=== PATIENT | female | born 1950 | race Caucasian/White ===

== ENCOUNTER 2017-03-02 12:45 | Inpatient (IN) | payer OTHER, MEDICAID ==
[~2017-03-02] VITALS: Ht 157.5 cm; Wt 77.6 kg
[~2017-03-02 12:45] MED LIST: HYDR25TA; TRAM50TA3
[2017-03-02] MEDS ORDERED: SODIUM CHLORIDE 0.9% 2,000 ML IV ONE (12:52)
[2017-03-02] MEDS ORDERED: ALBUTEROL (0.083%) 2.5MG/3ML NEB ONE (12:55)
[2017-03-02] MEDS ORDERED: FAMOTIDINE 20MG/2ML VIAL IV ONE ×2 (12:59→13:30)
[2017-03-02] MEDS ORDERED: PIPERACILLIN/TAZ 3.375G PREMIX 50 ML IV ONE (13:00)
[2017-03-02] MEDS ORDERED: METHYLPREDNISOLONE SOD SUCC 125 MG/2 ML VIAL ONE (13:00)
[2017-03-02] MEDS ORDERED: DIPHENHYDRAMINE 50MG/ML VIAL ONE (13:01)
[2017-03-02] MEDS ORDERED: EPINEPHRINE 1:1000 1 MG/ML AMP ONE (13:02)
[2017-03-02 13:25] LABS: BASOPHILS % 0.2 % (0.0-2.0); EOSINOPHILS % 0.6 % (0.0-5.0); HEMATOCRIT. 47.7 % (36.0-48.0); HEMOGLOBIN. 15.8 g/dL (12.0-16.0); LYMPHOCYTES % 15.2 % (20.0-50.0); MEAN CORPUSCULAR VOLUME 90.9 fL (81.0-99.0); MEAN PLATELET VOLUME 8.9 fl (7.4-10.4); MONOCYTES % 3.9 % (2.0-8.0); NEUTROPHILS % 80.1 % (40.0-76.0); PLATELET 266 x1000/uL (130-400); RED BLOOD CELL COUNT 5.25 mill/uL (4.2-5.4); RED CELL DISTRIBUTION WIDTH 13.4 % (11.6-14.6)
[2017-03-02] MEDS ORDERED: DIPHENHYDRAMINE 50MG/ML VIAL IV ONE (13:30)
[2017-03-02] MEDS ORDERED: EPINEPHRINE 1:1000 1 MG/ML AMP INJ ONE (13:30)
[2017-03-02] MEDS ORDERED: MAGNESIUM 2 G PREMIX 50 ML IV ONE (13:30)
[2017-03-02] MEDS ORDERED: IPRATROPIUM/ALBUTEROL 0.5-3(2.5)MG/3ML NEB HHN ONE (13:30)
[2017-03-02] MEDS ORDERED: METHYLPREDNISOLONE SOD SUCC 125 MG/2 ML VIAL IV ONE (13:30)
[2017-03-02 13:31] LABS: CHLORIDE 99 mEq/L (98-107)
[2017-03-02 13:34] LABS: PROTHROMBIN TIME 10.7 sec
[2017-03-02 13:36] LABS: CARBON DIOXIDE 22 mEq/L (21-32)
[2017-03-02 13:42] LABS: TROPONIN I 0.05 ng/mL (0.00-0.04)
[2017-03-02 14:31] LABS: BG BASE EXCESS -5.1 mmol/L (-2.0-2.0); BG BILEVEL POS AIRWAY PRESSURE ST=15/5; BG CARBOXYHEMOGLOBIN 0.8 % (0.5-1.5); BG DEOXYHEMOGLOBIN 1.7 % (0.0-5.0); BG FRACTION INSPIRED OXYGEN 50; BG METHEMOGLOBIN 0.5 % (0.0-1.5); BG OXYGEN SATURATION 98.3 % (92.0-98.5); BG PCO2 37.6 mmHg (35.0-45.0); BG PH 7.343 (7.350-7.450); BG PO2 116.3 mmHg (75.0-100.0); BG PRESSURE SUPPORT 10; BG SAMPLE SITE LEFT RADIAL; BG TOTAL HEMOGLOBIN 14.6 g/dL (12.0-18.0); BG VENT MODE MASK - BIPAP; BG VENT RATE 18 set
[2017-03-02] MEDS ORDERED: VANCOMYCIN 1 G PREMIX 200 ML IV SCH (15:15)
[2017-03-02] MEDS ORDERED: SODIUM CHLORIDE 0.9% 500 ML IV ONE (15:15)
[2017-03-02] MEDS ORDERED: SODIUM CHLORIDE 0.9% 1000ML BAG (SEPSIS BOLUS) IV ONE (15:15)
[2017-03-02 16:09] LABS: CLARITY URINE CLEAR (CLEAR); COLOR URINE YELLOW (YELLOW); GLUCOSE URINE 1+ (NEGATIVE); KETONES URINE 1+ (NEGATIVE); LEUKOCYTE ESTERASE URINE NEGATIVE (NEGATIVE); NITRITE URINE NEGATIVE (NEGATIVE); OCCULT BLOOD URINE TRACE (NEGATIVE); PROTEIN URINE 1+ (NEGATIVE); SPECIFIC GRAVITY URINE 1.023 (1.005-1.030); UROBILINOGEN URINE 0.2 E.U./dL (0.2-1.0)
[2017-03-02 16:56] LABS: *AMPHETAMINES SCREEN URINE NEGATIVE (NEGATIVE); *BARBITURATES SCREEN URINE NEGATIVE (NEGATIVE); *BENZODIAZEPINES SCREEN URINE NEGATIVE (NEGATIVE); *COCAINE SCREEN URINE NEGATIVE (NEGATIVE); CANNABINOID URINE SCREEN NEGATIVE (NEGATIVE); METHADONE URINE SCREEN NEGATIVE (NEGATIVE); OPIATES URINE SCREEN PRESUMTIVE POSITIVE (NEGATIVE); PHENCYCLIDINE URINE SCREEN NEGATIVE (NEGATIVE)
[2017-03-02 17:49] VITALS: BP 133/66
[2017-03-02 18:00] VITALS: BP 116/70
[2017-03-02] MEDS ORDERED: ONDANSETRON HCL 4MG/2ML VIAL IV PRN (18:15)
[2017-03-02] MEDS: SODIUM CHLORIDE 0.9% 1,000 ML IV SCH (18:30)
[2017-03-02 19:00] VITALS: BP 119/70
[2017-03-02 20:00] VITALS: BP 107/60
[2017-03-02] MEDS ORDERED: KCL 20MEQ/100ML PREMIX 100 ML IV ONE (20:00)
[2017-03-02] MEDS ORDERED: POTASSIUM CHLORIDE INJ 40 MEQ in DEXT 5% WATER 250 ML IV NR (21:00)
[2017-03-02] MEDS: IPRATROPIUM/ALBUTEROL 0.5-3(2.5)MG/3ML NEB HHN SCH (21:00)
[2017-03-02] MEDS: FAMOTIDINE 20MG/2ML VIAL IV SCH (21:30)
[2017-03-02] MEDS: METHYLPREDNISOLONE SOD SUCC 125 MG/2 ML VIAL IV SCH (21:33)
[2017-03-02] MEDS: DIPHENHYDRAMINE 50MG/ML VIAL IV SCH (21:33)
[2017-03-02 22:00] VITALS: BP 103/52
[2017-03-03] VITALS (15 sets, daily range): BP systolic 98–132; BP diastolic 61–79
[2017-03-03] MEDS: IPRATROPIUM/ALBUTEROL 0.5-3(2.5)MG/3ML NEB HHN SCH ×6 (00:57→21:21)
[2017-03-03] MEDS: METHYLPREDNISOLONE SOD SUCC 125 MG/2 ML VIAL IV SCH ×3 (05:50→21:34)
[2017-03-03] MEDS: DIPHENHYDRAMINE 50MG/ML VIAL IV SCH ×3 (05:50→21:37)
[2017-03-03] MEDS: SODIUM CHLORIDE 0.9% 1,000 ML IV SCH ×2 (05:51→14:50)
[2017-03-03 07:04] LABS: CARBON DIOXIDE 24 mEq/L (21-32); CHLORIDE 107 mEq/L (98-107)
[2017-03-03] MEDS: LEVOFLOXACIN 500MG PREMIX 100 ML IV SCH (08:51)
[2017-03-03] MEDS: FAMOTIDINE 20MG/2ML VIAL IV SCH ×2 (08:51→20:33)
[2017-03-03 09:30] LABS: HEMATOCRIT. 35.5 % (36.0-48.0); HEMOGLOBIN. 11.9 g/dL (12.0-16.0); MEAN CORPUSCULAR HEMOGLOBIN 29.9 pg (28.0-32.0); MEAN CORPUSCULAR VOLUME 89.3 fL (81.0-99.0); MEAN PLATELET VOLUME 8.8 fl (7.4-10.4); PLATELET 191 x1000/uL (130-400); RED BLOOD CELL COUNT 3.97 mill/uL (4.2-5.4); RED CELL DISTRIBUTION WIDTH 13.4 % (11.6-14.6)
[2017-03-03] MEDS: ACETAMINOPHEN 650MG/20.3ML UDC PO PRN (09:57)
[2017-03-03] MEDS: ENOXAPARIN 40MG/0.4ML SYR SUBCUT SCH (09:58)
[2017-03-03 12:57] LABS: PLATELET ESTIMATE NORMAL
[2017-03-03] MEDS: BLOOD SUGAR DIAGNOSTIC STRIP TEST SCH ×2 (16:44→20:33)
[2017-03-03] MEDS ORDERED: DEXTROSE 50% WATER 50ML SYRINGE IV PRN (16:45)
[2017-03-03] MEDS ORDERED: INSULIN LISPRO 100 UNITS/ML SUBCUT SCH (17:20)
[2017-03-03] MEDS: INSULIN LISPRO 100 UNITS/ML SUBCUT SCH ×2 (17:38→20:39)
[2017-03-04] VITALS (17 sets, daily range): BP systolic 112–146; BP diastolic 60–78
[2017-03-04] MEDS: SODIUM CHLORIDE 0.9% 1,000 ML IV SCH ×2 (01:18→10:30)
[2017-03-04] MEDS: IPRATROPIUM/ALBUTEROL 0.5-3(2.5)MG/3ML NEB HHN SCH ×4 (02:00→16:56)
[2017-03-04] MEDS: ACETAMINOPHEN 650MG/20.3ML UDC PO PRN (05:51)
[2017-03-04] MEDS: BLOOD SUGAR DIAGNOSTIC STRIP TEST SCH ×3 (06:08→16:57)
[2017-03-04] MEDS: METHYLPREDNISOLONE SOD SUCC 125 MG/2 ML VIAL IV SCH ×2 (06:08→14:24)
[2017-03-04] MEDS: DIPHENHYDRAMINE 50MG/ML VIAL IV SCH ×2 (06:11→14:24)
[2017-03-04 07:04] LABS: HEMATOCRIT. 33.7 % (36.0-48.0); HEMOGLOBIN. 11.3 g/dL (12.0-16.0); MEAN CORPUSCULAR HEMOGLOBIN 30.1 pg (28.0-32.0); MEAN CORPUSCULAR VOLUME 89.7 fL (81.0-99.0); MEAN PLATELET VOLUME 8.6 fl (7.4-10.4); PLATELET 208 x1000/uL (130-400); RED BLOOD CELL COUNT 3.76 mill/uL (4.2-5.4); RED CELL DISTRIBUTION WIDTH 13.7 % (11.6-14.6)
[2017-03-04 07:16] LABS: CARBON DIOXIDE 25 mEq/L (21-32); CHLORIDE 110 mEq/L (98-107)
[2017-03-04] MEDS: INSULIN LISPRO 100 UNITS/ML SUBCUT SCH ×3 (07:20→17:20)
[2017-03-04] MEDS: FAMOTIDINE 20MG/2ML VIAL IV SCH (08:54)
[2017-03-04] MEDS: LEVOFLOXACIN 500MG PREMIX 100 ML IV SCH (08:54)
[2017-03-04] MEDS: ENOXAPARIN 40MG/0.4ML SYR SUBCUT SCH (08:55)
[2017-03-04 11:53] LABS: PLATELET ESTIMATE NORMAL
== END 2017-03-04 20:40 | disposition home or self-care (01) | DRG 915 ==
LOC: ER 13:34 → 3WST 15:16 → EDBEDREQ 15:24 → ENRESERV 15:27 → CANBEDREQ 16:22
PROVIDERS: ADMIT Internal Medicine; ATTEND Internal Medicine
PROC: 5A09357 Assistance with Respiratory Ventilation, Less than 24 Consecutive Hours, Continuous Positive Airway Pressure (ICD-10-PCS; principal; 2017-03-02)
DX: T88.6XXA Anaphylactic reaction due to adverse effect of correct drug or medicament properly administered, initial encounter (principal); J96.90 Respiratory failure, unspecified, unspecified whether with hypoxia or hypercapnia; G93.40 Encephalopathy, unspecified; J44.0 Chronic obstructive pulmonary disease with (acute) lower respiratory infection; T38.0X5A Adverse effect of glucocorticoids and synthetic analogues, initial encounter; I10 Essential (primary) hypertension; J44.9 Chronic obstructive pulmonary disease, unspecified; T36.0X5A Adverse effect of penicillins, initial encounter; J20.9 Acute bronchitis, unspecified; R73.9 Hyperglycemia, unspecified; Z88.1 Allergy status to other antibiotic agents; Z79.899 Other long term (current) drug therapy; Z88.0 Allergy status to penicillin; Y92.89 Other specified places as the place of occurrence of the external cause
CPT/HCPCS: 36415; 36600; 70450; 71010; 80048; 80053; 80305; 81001; 82375; 82805; 82962; 83036; 83605; 84484; 85025; 85610; 86850; 86900; 87040; 87086; 92610; 93005; 94640; 94660; 94664; 96365; 96368; 96375; 99291; J0171; J1200; J1650; J1815; J1956; J2543; J2930; J3475; J3480; J3490; J7030; J7040; J7060; J7611; J7620

== ENCOUNTER 2022-07-14 12:04 | Inpatient (IN) | payer OTHER, MEDICAID ==
[~2022-07-14] VITALS: Ht 160 cm; Wt 73.5 kg
[2022-07-14 13:09] LABS: BASOPHILS % 0.2 % (0.0-2.0); EOSINOPHILS % 1.4 % (0.0-5.0); HEMATOCRIT. 44.4 % (36.0-48.0); LYMPHOCYTES % 26.6 % (20.0-50.0); MEAN CORPUSCULAR HEMOGLOBIN 30.6 pg (28.0-32.0); MEAN CORPUSCULAR VOLUME 90.9 fL (81.0-99.0); MEAN PLATELET VOLUME 9.5 fl (7.4-10.4); MONOCYTES % 4.7 % (2.0-8.0); NEUTROPHILS % 67.1 % (40.0-76.0); PLATELET 243 x1000/uL (130-400); RED BLOOD CELL COUNT 4.89 mill/uL (4.2-5.4); RED CELL DISTRIBUTION WIDTH 13.7 % (11.6-14.6)
[2022-07-14 13:40] LABS: CHLORIDE 105 mEq/L (98-107)
[2022-07-14] MEDS ORDERED: ACETAMINOPHEN 325MG TABLET PO PRN (23:00)
[2022-07-14] MEDS ORDERED: POTASSIUM CHLORIDE 20MEQ TABLET SR PO NR (23:15)
[2022-07-15] VITALS (7 sets, daily range): BP systolic 103–128; BP diastolic 44–71
[2022-07-15 01:53] LABS: BASOPHILS % 0.5 % (0.0-2.0); EOSINOPHILS % 3.4 % (0.0-5.0); HEMATOCRIT. 37.3 % (36.0-48.0); HEMOGLOBIN. 12.7 g/dL (12.0-16.0); LYMPHOCYTES % 22.4 % (20.0-50.0); MEAN CORPUSCULAR VOLUME 91.5 fL (81.0-99.0); MEAN PLATELET VOLUME 9.8 fl (7.4-10.4); MONOCYTES % 5.9 % (2.0-8.0); NEUTROPHILS % 67.8 % (40.0-76.0); PLATELET 201 x1000/uL (130-400); RED BLOOD CELL COUNT 4.08 mill/uL (4.2-5.4); RED CELL DISTRIBUTION WIDTH 13.4 % (11.6-14.6)
[2022-07-15 02:08] LABS: CHLORIDE 103 mEq/L (98-107)
[2022-07-15 02:20] LABS: HDL CHOLESTEROL 63 mg/dL (40-59); LDL CHOLESTEROL 53 mg/dL (5-100)
[2022-07-15] MEDS: ASPIRIN 81MG TABLET PO SCH ×2 (09:22→17:00)
[2022-07-15] MEDS: PANTOPRAZOLE SODIUM 40 MG/VIAL IV SCH (09:22)
[2022-07-15] MEDS: ENOXAPARIN 40MG/0.4ML SYR SUBCUT SCH (09:23)
[2022-07-15] MEDS ORDERED: REGADENOSON 0.4 MG/5 ML IV ONE (10:30)
[2022-07-15] MEDS ORDERED: ASPI-1497 MT (10:44)
[2022-07-15] MEDS ORDERED: SIMV-43 MT (10:46)
[2022-07-15] MEDS ORDERED: OXYB5TAB17 PO (10:47)
[2022-07-15] MEDS ORDERED: LINA145C MT (10:48)
[2022-07-15] MEDS ORDERED: ALBU05 NEB (10:49)
[2022-07-15] MEDS ORDERED: MOME13HF2 INH (10:50)
[2022-07-15 16:43] LABS: CLARITY URINE CLEAR (CLEAR); COLOR URINE YELLOW (YELLOW); KETONES URINE NEGATIVE (NEGATIVE); LEUKOCYTE ESTERASE URINE NEGATIVE (NEGATIVE); NITRITE URINE NEGATIVE (NEGATIVE); OCCULT BLOOD URINE NEGATIVE (NEGATIVE); PH URINE 7.5 (4.5-8.0); PROTEIN URINE NEGATIVE (NEGATIVE); SPECIFIC GRAVITY URINE 1.012 (1.005-1.030)
[2022-07-15 16:57] LABS: *AMPHETAMINES SCREEN URINE NEGATIVE (NEGATIVE); *BARBITURATES SCREEN URINE NEGATIVE (NEGATIVE); *BENZODIAZEPINES SCREEN URINE NEGATIVE (NEGATIVE); *COCAINE SCREEN URINE NEGATIVE (NEGATIVE); CANNABINOID URINE SCREEN NEGATIVE (NEGATIVE); METHADONE URINE SCREEN NEGATIVE (NEGATIVE); OPIATES URINE SCREEN NEGATIVE (NEGATIVE); PHENCYCLIDINE URINE SCREEN NEGATIVE (NEGATIVE)
[2022-07-16 00:18] VITALS: BP 130/49
[2022-07-16 04:00] VITALS: BP 117/85
[2022-07-16 06:46] LABS: BASOPHILS % 0.4 % (0.0-2.0); EOSINOPHILS % 4.6 % (0.0-5.0); HEMATOCRIT. 38.3 % (36.0-48.0); HEMOGLOBIN. 13.2 g/dL (12.0-16.0); LYMPHOCYTES % 32.7 % (20.0-50.0); MEAN CORPUSCULAR HEMOGLOBIN 31.1 pg (28.0-32.0); MEAN CORPUSCULAR VOLUME 90.2 fL (81.0-99.0); MONOCYTES % 7.4 % (2.0-8.0); NEUTROPHILS % 54.9 % (40.0-76.0); PLATELET 188 x1000/uL (130-400); RED BLOOD CELL COUNT 4.25 mill/uL (4.2-5.4); RED CELL DISTRIBUTION WIDTH 13.6 % (11.6-14.6)
[2022-07-16 07:06] LABS: CHLORIDE 105 mEq/L (98-107)
[2022-07-16 08:06] VITALS: BP 107/56
[2022-07-16] MEDS: ASPIRIN 81MG TABLET PO SCH ×2 (10:58→17:09)
[2022-07-16] MEDS: PANTOPRAZOLE SODIUM 40 MG/VIAL IV SCH (10:58)
[2022-07-16] MEDS: ENOXAPARIN 40MG/0.4ML SYR SUBCUT SCH (11:01)
[2022-07-16 19:04] VITALS: BP 120/53
[2022-07-16 20:00] VITALS: BP 117/52
[2022-07-17] VITALS: BP 124/60
[2022-07-17 04:00] VITALS: BP 114/54
[2022-07-17] MEDS ORDERED: DOBUTAMINE 250MG PREMIX 250 ML IV NR (07:00)
[2022-07-17 08:00] VITALS: BP 113/67
[2022-07-17] MEDS ORDERED: FAMOTIDINE 20MG TABLET PO SCH (09:00)
[2022-07-17] MEDS ORDERED: DOBUTAMINE 250MG PREMIX 250 ML IV ONE (09:30)
[2022-07-17] MEDS: ENOXAPARIN 40MG/0.4ML SYR SUBCUT SCH (13:23)
[2022-07-17] MEDS: ASPIRIN 81MG TABLET PO SCH (13:23)
[2022-07-17 16:00] VITALS: BP 103/50
[2022-07-17 16:59] VITALS: BP 103/50
== END 2022-07-17 17:29 | disposition home or self-care (01) | DRG 392 ==
LOC: ER 12:04 → 7WST 15:29 → EDBEDREQ 15:31 → EDBEDREQTM 15:31
PROVIDERS: ADMIT Internal Medicine; ATTEND Internal Medicine
DX: K21.9 Gastro-esophageal reflux disease without esophagitis (principal); E87.6 Hypokalemia; E78.5 Hyperlipidemia, unspecified; E66.9 Obesity, unspecified; I10 Essential (primary) hypertension; J45.909 Unspecified asthma, uncomplicated; Z88.0 Allergy status to penicillin; Z88.8 Allergy status to other drugs, medicaments and biological substances; Z79.899 Other long term (current) drug therapy; Z68.28 Body mass index [BMI] 28.0-28.9, adult; Z95.1 Presence of aortocoronary bypass graft
CPT/HCPCS: 36415; 71045; 80048; 80053; 80061; 80305; 81003; 83880; 84484; 85025; 93005; 93306; 93350; 99291; C9113; J1250; J1650